=== PATIENT | male | born 2000 | race African-American/Black ===

== ENCOUNTER 2021-03-15 06:19 | Emergency (ER) | payer OTHER ==
[~2021-03-15] VITALS: Ht 180.3 cm; Wt 65.8 kg
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
[2021-03-15 07:50] VITALS: BP 119/68
== END 2021-03-15 08:08 ==
LOC: ER 06:23
DX: Z02.89 Encounter for other administrative examinations (principal); F10.10 Alcohol abuse, uncomplicated; F12.90 Cannabis use, unspecified, uncomplicated; R40.4 Transient alteration of awareness; J45.909 Unspecified asthma, uncomplicated; V49.49XA Driver injured in collision with other motor vehicles in traffic accident, initial encounter; Y93.89 Activity, other specified; Y92.413 State road as the place of occurrence of the external cause; Y99.8 Other external cause status; Y90.9 Presence of alcohol in blood, level not specified
CPT/HCPCS: 70450-TC; 71045-TC; 72125-TC; 72170-TC